=== PATIENT | female | born 1975 | race Caucasian/White ===

== ENCOUNTER 2025-02-11 18:38 | Observation (INO) | payer BC ==
[~2025-02-11] VITALS: Ht 152.4 cm; Wt 50.2 kg
[2025-02-11] MEDS ORDERED: SILD20TA42 PO (20:38)
[2025-02-11] MEDS ORDERED: GUAI120L62 PO (20:38)
[2025-02-11 20:40] VITALS: O2SAT 99
[2025-02-11] MEDS ORDERED: CYCL5TAB3 PO (20:40)
[2025-02-11 20:51] VITALS: BP 141/99; PULSE 89; RESP 20; TEMP 98
[2025-02-11] MEDS ORDERED: BENZ200C53 PO (21:14)
[2025-02-11] MEDS ORDERED: HYDR-4060 PO (21:14)
--- NOTE | 2025-02-11 21:15 | HP ---
History of Present Illness Reason for Visit: Chest pain History of Present Illness Ms. Adler is a 50-year-old female that was seen and examined today on 02/11/2025. Patient is a good historian of personal health. Patient's has been, mary dutta is at bedside. Patient is visiting [place] from where she lives in [facility]. Today at 1:00 p.m. after eating at: Around patient developed chest pain. Location is midsternal. Duration is on and off. Character is described as pressure. Episode lasted2 hours. Pain radiated to upper back. Symptoms are not alleviated with three sublingual nitroglycerin at [facility]. Symptoms are aggravated with physical activity. Patient reports that she was walking to her car after leaving the restaurant she felt dizzy but did not lose consciousness or feet. Patient believes her "open esophagus" maybe also contributing to these symptoms. Emergency room physician at [facility] recommended that patient be admitted to the hospitalist so they could be evaluated by Cardiology Service. Patient was accepted by Dr. Jackson newberry. And arrived later on Past Medical History ADDITIONAL PAST MEDICAL HISTORY: [Lupus, pulmonary fibrosis, open " open esophagus"] SOCIAL HISTORY: [Negative for smoking, alcohol use, drug use. Patient lives with the has beenmary. Patient is typically independent of all her ADLs. Patient denies difficulty paying her bills. SURGICAL HISTORY: [ section x3 Review of Systems General: No Fever, No Chills, No Night Sweats, No Fatigue, No Malaise, No Appetite, No Other HEENT: No Head Aches, No Visual Changes, No Eye Pain, No Ear Pain, No Dysp hasia, No Sinus Congestion, No Post Nasal Drip, No Sore Throat, No Other Pulmonary: No Dyspnea, No Cough, No Pleuritic Chest Pain, No Other Cardiovascular: Chest Pain; No: Palpitations, Orthopnea, Paroxysmal Noc. Dyspnea, Edema, Lt Headedness, Other Gastrointestinal: No: Nausea, Vomiting, Abdominal Pain, Diarrhea, Constipation, Melena, Hematochezia, Other Genitourinary: No Dysuria, No Frequency, No Incontinence, No Hematuria, No Retention, No Other Musculoskeletal: No: other, neck pain, shoulder pain, arm pain, back pain, hand pain, leg pain, foot pain Skin: No Urticaria, No Rash, No Other Neurological: No: Weakness, Numbness, Incoordination, Change in speech, Confusion, Seizures, Other Allergies: Coded Allergies: No Known Drug Allergies (Unverified Allergy, Unknown, 02/11/25) Scheduled Cholecalciferol (Vitamin D3) (Vitamin D3), 125 MCG PO DAILY, (Reported) Naloxone HCl (Naloxone HCl), 4 MG NS AD, (Reported) Sildenafil Citrate (Sildenafil), 20 MG PO DAILY, (Reported) Scheduled PRN Benzonatate (Benzonatate), 100 MG PO TID PRN for COUGH, (Reported) Cyclobenzaprine HCl (Cyclobenzaprine HCl), 5 MG PO TIDP PRN for MUSCLE SPASMS, (Reported) Guaifenesin/Codeine Phosphate (Codeine-Guaifen 10-100 mg/5 ml), 5 ML PO QIDP PRN for PAIN LEVEL 1 TO 5, (Reported) Hydrocodone/Acetaminophen (Hydrocodon-Acetaminophen 5-325), 1 EACH PO Q4HPRN PRN for PAIN LEVEL 6 TO 10, (Reported) Ipratropium/Albuterol Sulfate (Iprat-Albut 0.5-3(2.5) mg/3 ml), 3 ML IH Q4HPRN PRN for SHORTNESS OF BREATH/WHEEZING, (Reported) Exam Vital Signs Vital Signs Date Time Temp Pulse Resp B/P (MAP) Pulse Ox O2 Delivery O2 Flow Rate FiO2 02/11/25 20:51 98.1 89 20 141/99 100 Room Air General Appearance: Alert, Oriented X3, Cooperative, No acute distress HEENT: Atraumatic, EOMI Respiratory: Clear to auscultation, Normal air movement, NL respiratory effort Cardiovascular: Regular rate, Regular rhythm, Normal S1, Normal S2 Abdominal: Normal bowel sounds, Soft, No tenderness Extremities: No edema Skin: No significant lesion Neuro: Normal gait, Normal speech, Strength at 5/5 X4 ext, Sensation intact, Cranial nerves 3-12 NL Psych/Mental Status: Mental status NL, Mood NL, Thoughts/Content NL Assessment/Plan ASSESSMENT: [ Chest pain, POA Lupus, POA Pulmonary fibrosis, POA] PLAN: [ Admit patient to pccu as inpatient status. Place patient on telemetry monitoring. patient received loading dose of [facility] at [facility]. Continue aspirin 81 mg by mouth once daily Nitroglycerin sublingual 0.4 mg as needed for chest pain every 5 minutes, max 3 doses, hold for systolic blood pressure less than 100 mmHg. Trend troponin every 6 hours x 3 sets Supplemental oxygen to maintain O2 saturation greater than 92% patient will be followed by cardiology service, appreciate recommendations. Consider resuming home medications once they have been reconciled. At time of admission home medications has been reconciled. GI prophylaxis, famotidine DVT prophylaxis, Lovenox ADVANCED CARE PLANNING 1. Which of the following were discussed? Hospice Care - Yes Therapeutic options - yes Advance Directives - Yes - patient states he does not have any advance directives in place at this time, however her , freedom can make decisions for her if she becomes unable Other discussions - patient wishes to remain a full code at this time 2. Discussed with who? Patient 3. Voluntary nature of this service was explained to the patient? Yes 4. Amount of time spent - ___16 minutes____ 5. Reviewed by Physician? (if this service was performed by NPP) Yes This document was generated in part using voice recognition software, occasional wrong word or sound alike substitutions may have occurred due to the inherent limitations of voice recognition software. Read the chart carefully and recognize using context, where the substitutions have occurred. Although every effort was made to edit the content, vice president mission integration and typing errors may occur ATTESTATION BY PHYSICIAN I have seen and examined the patient. I reviewed the documentation, medical decision making, and treatment plan as noted by the mid-level provider above. I agree with the findings and plan of care.] AD SANDHU [facility] Feb 11, 2025 21:15
[2025-02-11] MEDS ORDERED: IPRA3AMP24 NEB (21:17)
[2025-02-11] MEDS ORDERED: IPRA3AMP24 IH (21:17)
[2025-02-11] MEDS ORDERED: NALO4SPR22 NS (21:17)
[2025-02-11] MEDS ORDERED: CALC-866 PO (21:20)
[2025-02-11] MEDS ORDERED: MYCO500T5 PO (21:22)
[2025-02-11] MEDS ORDERED: NITROGLYCERIN 0.4 MG SL TAB SL PRN (22:00)
[2025-02-11 23:25] VITALS: BP 115/71; PULSE 96; RESP 18; TEMP 98
[2025-02-12 03:25] VITALS: BP 87/57; PULSE 91; RESP 18; TEMP 98.4
[2025-02-12] MEDS ORDERED: MYCO500T5 PO (03:44)
[2025-02-12 04:30] LABS: IMMATURE GRANULOCYTE ABSOLUTE 0.04 K/uL (0-1); NUCLEATED RED BLOOD CELLS 0.0 % (0.0-0.19); PLATELET COUNT (AUTO) 341 K/uL (130-400); RED BLOOD CELL COUNT(AUTO) 4.01 MIL/uL (4.00-5.50); RED CELL DISTRIBUTION WIDTH 13.2 % (11.0-15.5); WHITE BLOOD COUNT (AUTO) 6.9 K/uL (4.8-10.8)
[2025-02-12 04:48] LABS: CREATININE 0.6 mg/dL (0.5-1.0); GLOMERULAR FILTR. RATE CALC 110.0 mL/min (>90); GLUCOSE,RANDOM 95.0 mg/dL (70-105); PHOSPHORUS 4.4 mg/dL (2.5-4.9); SODIUM SERUM 137.0 mmol/L (136-145); UREA NITROGEN, BLOOD 13.0 mg/dL (7-18)
[2025-02-12 07:00] VITALS: BP 96/63; PULSE 67; RESP 20; TEMP 98
--- NOTE | 2025-02-12 09:18 | CONS ---
[facility] CARDIOLOGY CONSULTATION REPORT Consultation note dictated for Luisa Rodney MD Date Patient Seen: Feb 12, 2025 Time of Visit: 09:12 Requesting Physician: DB Chadwick Reason for Consultation: Chest pain History of Present Illness: This is a 50-year-old female with a past medical history of Lupus erythematosus, Raynaud's disease, scleroderma, pulmonary fibrosis, and esophageal problems who presented to the ED with complaints of chest pain. Cardiology has been consulted for chest pain. On Saturday, in the patient developed lower sternal/epigastric discomfort that lasted approximately 1-1/2 hours after consuming an alcoholic beverage. Yesterday, the patient again developed lower sternal/epigastric discomfort discomfort that radiated to her back described as pressure-like and burning while eating at a buffet. Discomfort with severe and accompanied by nausea, vomiting, dizziness, diaphoresis, and elevated heart rate. The patient visited [facility] emergency center for evaluation of symptoms. She was given sublingual and nitroglycerin paste without resolution of symptoms. Symptoms subsided after IV Pepcid. An abdominal ultrasound on 02/11 demonstrated cholelithiasis without cholecystitis. Cardiac enzymes have been negative x2. EKG from [facility] 02/11 at 1316 demonstrated normal sinus rhythm with a heart rate of 88bpm with no acute ischemia. No overnight telemetry events, currently demonstrating normal sinus rhythm with heart rates 70s to 80s. The patient is currently chest pain-free. She did report having diarrhea. The patient states she is having Lupus flare and complains of left flank discomfort. No chest discomfort with palpation. Past Medical History: As per HPI and summarized below Past Surgical History: x3 Family History: The patient is adopted and does not know her family history. Social History: The patient lives with family. Habits: The patient denies tobacco or illicit drug use but does admit alcohol consumption twice a month. Home Meds: Mycophenolate 500 mg b.i.d. Benzonatate 100 mg t.i.d. p.r.n. Vitamin D3125 mcg daily Cyclobenzaprine 5mg t.i.d. p.r.n. Guaifenesin/codeine phosphate 10 mg-100 mg/ 5mL, 5 mL q.i.d. p.r.n. Hydrocodone/acetaminophen 5-325 mg q.4 hours p.r.n. Ipratropium/albuterol sulfate 0.5 mg-3 mg,/3ml, 3 mL inhaled q.4 hours p.r.n. Naloxone 5 mg as directed Sildenafil 20 mg daily Current Meds: Medications Dose Ordered Sig/Samreen Start Time Stop Time Status Last Admin Guaifenesin/ Codeine Phosphate 5 ml Q4H PRN 02/11/25 21:00 03/13/25 20:59 Acetaminophen 650 mg Q6H PRN 02/11/25 22:00 03/13/25 21:59 Atorvastatin Calcium 40 mg HS 02/12/25 21:00 03/14/25 20:59 Famotidine 20 mg DAILY 02/12/25 09:00 03/14/25 08:59 Enoxaparin Sodium 40 mg DAILY 02/12/25 09:00 03/14/25 08:59 Hydralazine HCl 10 mg Q6H PRN 02/11/25 22:00 03/13/25 21:59 Morphine Sulfate 2 mg Q4H PRN 02/11/25 22:00 02/18/25 21:59 Ondansetron HCl 4 mg Q6H PRN 02/11/25 22:00 03/13/25 21:59 Aspirin 81 mg DAILY 02/12/25 09:00 03/14/25 08:59 Nitroglycerin 0.4 mg PROTOCOL PRN 02/11/25 22:00 03/13/25 21:59 Review of Systems: CONST: No fever, fatigue, or weight changes. EYES: No recent vision problems. ENT: No congestion, ear pain, or sore throat. C/V: No chest pain, palpitations, or edema. RESP: No cough, congestion, wheezing or shortness of breath. GI: No abdominal pain, nausea, vomiting, constipation, or diarrhea. : No incontinence or dysuria. SKIN: No rash. NEURO: No headache, focal numbness or weakness, dizziness, or seizures. PSYCH: No depression or anxiety. HEME: No abnormal bruising or bleeding. LYMPH: No swollen glands. Physical Examination: GENERAL: No acute distress. HEAD: Normal with no signs of head trauma. EYES: conjunctiva and sclera normal. ENT: Hearing grossly intact, normal oropharynx. NECK: Supple without JVD. Normal carotid upstrokes without bruits. LUNGS: Clear breath sounds bilaterally. No wheezes, or rhonchi. HEART: Normal rate and rhythm. Normal S1 and S2 without murmurs, gallop or rub. VASC: Peripheral pulses +2 bilaterally. ABD: Bowel sounds normal, soft, nontender, no masses, no organomegaly. No audible bruits. : Not examined LYMPH: No lymphadenopathy noted. EXT: No clubbing, cyanosis or edema. SKIN: No rashes or lesions noted. NEURO: Awake, alert, and oriented x3. No focal sensory or strength deficits noted. Vital Signs (last 8hr) Date Time Temp Pulse Resp B/P (MAP) Pulse Ox O2 Delivery O2 Flow Rate FiO2 02/12/25 07:00 98.1 67 20 96/63 96 Room Air 02/12/25 03:25 98.4 91 18 87/57 94 Room Air Laboratory: Hematology Labs: Test 02/12/25 04:06 Range/Units White Blood Count 6.9 4.8-10.8 K/uL Red Blood Count 4.01 4.00-5.50 MIL/uL Hemoglobin 11.9 L 12.0-16.0 g/dL Hematocrit 36.2 36-48 % Mean Corpuscular Volume 90.3 79-99 fL Mean Corpuscular Hemoglobin 29.7 27.0-33.0 pg Mean Corpuscular Hemoglobin Concent 32.9 32.0-36.0 g/dL Red Cell Distribution Width 13.2 11.0-15.5 % Platelet Count 341 130-400 K/uL Mean Platelet Volume 8.9 7.5-10.5 fL Immature Granulocyte % (Auto) 0.6 0-1 % Neutrophils (%) (Auto) 50.7 40.0-77.0 % Lymphocytes (%) (Auto) 30.3 21.0-51.0 % Monocytes (%) (Auto) 9.3 3.0-13.0 % Eosinophils (%) (Auto) 8.4 H 0.0-8.0 % Basophils (%) (Auto) 0.7 0.0-5.0 % Neutrophils # (Auto) 3.5 1.8-7.7 K/uL Lymphocytes # (Auto) 2.1 1.0-4.8 K/uL Monocytes # (Auto) 0.6 0.1-1.0 K/uL Eosinophils # (Auto) 0.58 0.00-0.70 K/uL Basophils # (Auto) 0.05 0.00-0.20 K/uL Absolute Immature Granulocyte (auto 0.04 0-1 K/uL Nucleated Red Blood Cells 0.0 0.0-0.19 % Chemistry Labs: Test 02/12/25 04:06 Range/Units Sodium Level 137 136-145 mmol/L Potassium Level 3.9 3.5-5.1 mmol/L Chloride Level 104 101-111 mmol/L Carbon Dioxide Level 24 21-32 mmol/L Blood Urea Nitrogen 13 7-18 mg/dL Creatinine 0.6 0.5-1.0 mg/dL Glomerular Filtration Rate Calc 110 >90 mL/min Random Glucose 95 70-105 mg/dL Total Calcium 8.8 8.5-10.1 mg/dL Phosphorus Level 4.4 2.5-4.9 mg/dL Magnesium Level 1.80 1.80-2.40 mg/dL Troponin I High Sensitivity 21 4-50 ng/L Diagnostics / Radiology: Impression and Plan: Atypical chest discomfort Lupus erythematosus Raynaud's disease Scleroderma Pulmonary fibrosis Esophageal problems Pending JOSE evaluation by her quality internship Pending an outpatient EGD/Colonoscopy on 03/12/2025 Atypical chest discomfort Cardiac enzymes have been negative x2. EKG from [facility] 02/11 at 1316 demonstrated normal sinus rhythm with a heart rate of 88bpm with no acute ischemia. No overnight telemetry events, currently demonstrating normal sinus rhythm with heart rates 70s to 80s. The patient is pending an outpatient EGD/Colonoscopy on 03/12/2025 in [place], [place] where she resides. -Symptoms sound GI related at they occurred after alcohol consumption, then while eating and was relieved by IV Pepcid. -Will obtain a 2D Echo, if benign, cardiology will sign-off. We do recommend an outpatient Stress test vs Coronary CTA. BONNY CRAMER PHOTOGRAPHY TEACHER Feb 12, 2025 09:18
--- NOTE | 2025-02-12 09:49 | NUR ---
DCP: HOME Pt and visiting [facility] for 's job. Couple will be saying at [facility] for a few days. Pt under care for Lupus, states she applied for SSD and pending determination. Pt sates she is independent of her self care and home management. Family assists as needed. Pt uses no DME or in home care services. PCP is Dr Keating, Lupus Dr Kp Vincent in [place]. DCP is to Ve[facility] in [facility] with
[2025-02-12 09:50] VITALS: O2SAT 99
[2025-02-12] MEDS: FAMOTIDINE 20MG VIAL IV SCH (09:51)
[2025-02-12] MEDS: ASPIRIN 81 MG EC TAB PO SCH (09:51)
[2025-02-12] MEDS: ENOXAPARIN SODIUM 40 MG/0.4 ML SYRINGE SQ SCH (09:52)
[2025-02-12 11:00] VITALS: BP 104/73; PULSE 88; RESP 20; TEMP 97.9
[2025-02-12] MEDS ORDERED: BENZONATATE 100 MG CAPSULE PO PRN (11:00)
[2025-02-12] MEDS ORDERED: CYCLOBENZAPRINE HCL 10 MG TABLET PO PRN (11:00)
--- NOTE | 2025-02-12 14:10 | PN ---
[facility] PROGRESS NOTE Date of Service: Feb 12, 2025 Time of Service: 14:10 SUBJECTIVE: [ ] REVIEW OF SYSTEMS CONSTITUTIONAL: Denies fevers, chills, or night sweats. No unintentional weight loss reported. NEUROLOGICAL: Denies headache, amaurosis fugax, motor weakness, sensory deficit, vertigo/spinning sensation, gait abnormalities, or tremors. ENT: No hearing loss, otalgia, otorrhea, rhinitis, rhinorrhea, hoarseness, or sore throat. CARDIOVASCULAR: Denies any exertional angina, dyspnea on exertion, orthopnea, paroxysmal nocturnal dyspnea, palpitations, life-threatening arrhythmias, claudication. PULMONARY: Denies any shortness of breath, cough, phlegm/sputum, hemoptysis, pleuritic chest pain. SLEEP: Denies morning headaches, daytime somnolence or napping. Denies difficulty falling asleep, staying asleep, waking from sleep. Denies knowledge of snoring. GASTROINTESTINAL: Denies any type of dysphagia to either liquids or solids. Denies nausea, vomiting, pyrosis, early satiety, abdominal pain, diarrhea, constipation, or changes in stool consistency or caliber. Denies coffee-ground emesis, hematemesis, hematochezia, or melanotic stools. GENITOURINARY: Denies frequency, urgency, nocturia, hematuria or incontinence (Storage/Irritative symptoms.) Low urinary stream, straining to void, urinary i ntermittency or hesitancy, splitting of the voiding stream, terminal dribbling. ENDOCRINOLOGIC: Denies polyuria, polydipsia, polyphagia or heat/cold intolerances. HEMATOLOGIC: Denies thrombophilia/previous clots, or coagulopathy/bleeding disorders. ONCOLOGIC: Denies personal history of malignancy. DERMATOLOGIC: Denies rashes or pruritus. PSYCHIATRIC: Denies any suicidal or homicidal ideation. Denies hallucinations. PHYSICAL EXAM GENERAL APPEARANCE: The patient is awake, alert, and oriented, in no acute cardiopulmonary distress. NEUROLOGICAL: Cranial nerves II-XII grossly intact. Motor is 5/5 in bilateral upper and lower extremities proximal to distal. No sensory deficits. HEENT: Face is symmetric. Pupils are equal and reactive. Extraocular movements are intact. NECK: Supple. No JVD. No thyromegaly. No submental, submandibular, pre- /postauricular, occipital or supraclavicular lymphadenopathy. CHEST: Normal chest expansion. No Telemetry. LUNGS: Absence of any rales, rhonchi or any wheezing. CARDIOVASCULAR: Regular. S1 and S2 normal. No appreciable rubs, murmurs or gallops. ABDOMEN: Soft, nontender, and nondistended. There is no rebound, voluntary guarding, or rigidity. : Deferred. No Perry. EXTREMITIES: Non-edematous and not cyanotic. No clubbing. Good capillary refill. SKIN: No skin breakdown. Vital Signs (last 8hr) Date Time Temp Pulse Resp B/P (MAP) Pulse Ox O2 Delivery O2 Flow Rate FiO2 02/12/25 11:00 97.9 88 20 104/73 95 Room Air 02/12/25 09:50 99 Room Air* 0 21 02/12/25 07:00 98.1 67 20 96/63 96 Room Air LABS: Laboratory: Test 02/12/25 10:00 02/12/25 04:06 Range/Units Troponin I High Sensitivity 14 4-50 ng/L White Blood Count 6.9 4.8-10.8 K/uL Red Blood Count 4.01 4.00-5.50 MIL/uL Hemoglobin 11.9 L 12.0-16.0 g/dL Hematocrit 36.2 36-48 % Mean Corpuscular Volume 90.3 79-99 fL Mean Corpuscular Hemoglobin 29.7 27.0-33.0 pg Mean Corpuscular Hemoglobin Concent 32.9 32.0-36.0 g/dL Red Cell Distribution Width 13.2 11.0-15.5 % Platelet Count 341 130-400 K/uL Mean Platelet Volume 8.9 7.5-10.5 fL Immature Granulocyte % (Auto) 0.6 0-1 % Neutrophils (%) (Auto) 50.7 40.0-77.0 % Lymphocytes (%) (Auto) 30.3 21.0-51.0 % Monocytes (%) (Auto) 9.3 3.0-13.0 % Eosinophils (%) (Auto) 8.4 H 0.0-8.0 % Basophils (%) (Auto) 0.7 0.0-5.0 % Neutrophils # (Auto) 3.5 1.8-7.7 K/uL Lymphocytes # (Auto) 2.1 1.0-4.8 K/uL Monocytes # (Auto) 0.6 0.1-1.0 K/uL Eosinophils # (Auto) 0.58 0.00-0.70 K/uL Basophils # (Auto) 0.05 0.00-0.20 K/uL Absolute Immature Granulocyte (auto 0.04 0-1 K/uL Nucleated Red Blood Cells 0.0 0.0-0.19 % Sodium Level 137 136-145 mmol/L Potassium Level 3.9 3.5-5.1 mmol/L Chloride Level 104 101-111 mmol/L Carbon Dioxide Level 24 21-32 mmol/L Blood Urea Nitrogen 13 7-18 mg/dL Creatinine 0.6 0.5-1.0 mg/dL Glomerular Filtration Rate Calc 110 >90 mL/min Random Glucose 95 70-105 mg/dL Total Calcium 8.8 8.5-10.1 mg/dL Phosphorus Level 4.4 2.5-4.9 mg/dL Magnesium Level 1.80 1.80-2.40 mg/dL Current Medications Medications (Trade) Dose Ordered Sig/Samreen Route PRN Reason Start Time Stop Time Status Last Admin Dose Admin Acetaminophen (TYLenol 325MG TAB) 650 mg Q6H PRN PO TEMPERATURE GREATER THAN 101.5 02/11/25 22:00 03/13/25 21:59 Aspirin (Aspirin 81mg Ec Tab) 81 mg DAILY PO 02/12/25 09:00 03/14/25 08:59 02/12/25 09:51 81 MG Atorvastatin Calcium (LIPItor 40MG) 40 mg HS PO 02/12/25 21:00 03/14/25 20:59 Benzonatate (Tessalon 100mg Caps) 100 mg TID PRN PO COUGH 02/12/25 11:00 03/14/25 10:59 Cyclobenzaprine HCl (Cyclobenzaprine HCl) 5 mg TIDP PRN PO MUSCLE SPASMS 02/12/25 11:00 03/14/25 10:59 Enoxaparin Sodium (Lovenox) 40 mg DAILY SQ 02/12/25 09:00 03/14/25 08:59 02/12/25 09:52 40 MG Famotidine (Pepcid 20mg Vial) 20 mg DAILY IV 02/12/25 09:00 03/14/25 08:59 02/12/25 09:51 20 MG Guaifenesin/ Codeine Phosphate (RobiTUSSin AC 5 ML SYRUP) 5 ml Q4H PRN PO PAIN1-5 02/11/25 21:00 03/13/25 20:59 Home Med (Home Medication) (Cholecalciferol (Vitamin D3) 125 MCG) DAILY PO 02/13/25 09:00 03/15/25 08:59 Hydralazine HCl (APRESOLine 20MG INJ) 10 mg Q6H PRN IV For:SBP above 160;DBP above 90 02/11/25 22:00 03/13/25 21:59 Morphine Sulfate (morPHINE 4MG SYG) 2 mg Q4H PRN IVP SEVERE PAIN (7-10) 02/11/25 22:00 02/18/25 21:59 Mycophenolate Mofetil (Cellcept) 500 mg BID PO 02/12/25 21:00 03/14/25 20:59 Nitroglycerin (Nitrostat) 0.4 mg PROTOCOL PRN SL CHEST PAIN 02/11/25 22:00 03/13/25 21:59 Ondansetron HCl (zoFRAN 4MG INJ) 4 mg Q6H PRN IV NAUSEA/VOMITING 02/11/25 22:00 03/13/25 21:59 DIAGNOSTICS / RADIOLOGY: [ ] ASSESSMENT: [ ] PLAN: [ ] FIONA PATEL MD Feb 12, 2025 14:10
--- NOTE | 2025-02-12 15:14 | HMCSR ---
APPROVED REPORT EXAM: Two-dimensional and M-mode echocardiogram with Doppler and color Doppler. INDICATION ICD: Chest Pain 2D Dimensions RVDd 3.0 cm LVEF(%) 67.6 (>50%) LVED Vol(simp.) 50.0 mL IVSd 0.8 (0.7-1.1cm) FS(%) 37 % LVES Vol(simp.) 22.0 mL LVDd 3.3 (3.8-5.6cm) LA (2D) 3.1 (1.6-4.0cm) LVEF(%, simp.) 57 % PWd 0.9 (0.7-1.1cm) Ao Root(2D) 2.5 (2.0-3.7cm) LA ESV INDEX (BP) 19.49 mL/m2 IVSs 1.1 cm LVOT diam 1.9 (1.8-2.4cm) LVDs 2.1 (2.5-4.0cm) IVC diam 1.4 cm PWs 1.3 cm Deformation Strain Apical 4 -18.6 % Apical 2 -18.0 % Apical 3 -17.8 % Global Strain -18.1 % M-Mode Dimensions EPSS 0.4 cm LA (MM) 3.0 (1.6-4.0cm) Ao Root(MM) 2.5 (2.0-3.7cm) Aortic Valve AoV Vmax 0.9 m/s Ao Peak GR 3.3 mmHg LVOT Vmax 0.8 m/s AoV VTI 0.2 m Ao Mean GR 2.0 mmHg LVOT VTI 0.14 m MARKIE (VMAX) 2.42 cm2 MARKIE (VTI) 2.7 cm2 Mitral Valve MV E Vmax 89.1 cm/s DECEL Time 138 ms MV A Vmax 38.4 cm/s P 1/2 T 32 ms E/A ratio 2.3 MVA (PHT) 6.8 cm2 TDI E/E' Medial 7.9 E/E' Lateral 7.3 Medial E' Peak V 11.32 cm/s Lateral E' Peak V 12.23 cm/s Pulmonary Valve PV Vmax 0.8 m/s PV Mean GR 1.6 mmHg PV Peak GR 2.4 mmHg Tricuspid Valve TR Vmax 2.0 m/s RAP (EST) 3 mmHg RVSP 19.0 mmHg TR Peak GR 16.0 mmHg Left Ventricle The left ventricle is normal size. GLS 18.0% No regional wall motion abnormalities noted. There is normal left ventricular wall thickness. LVEF is 60-65%. The left ventricular diastolic function is normal. Right Ventricle The right ventricle is normal size. The right ventricular systolic function is normal. Atria The left atrium size is normal. The right atrium size is normal. Aortic Valve The aortic valve is normal in structure. No aortic regurgitation is present. There is no aortic valvular stenosis. Mitral Valve The mitral valve is normal in structure. There is trace of mitral valve regurgitation noted. There is no mitral valve stenosis. Tricuspid Valve The tricuspid valve is normal in structure. There is trace of tricuspid valve regurgitation noted. Estimated pulmonary pressures are normal. Pulmonic Valve The pulmonary valve is normal in structure. There is no pulmonic valvular regurgitation. Great Vessels The aortic root is normal in size. The IVC is normal in size and collapses >50% with inspiration. Pericardium There is no pericardial effusion. Other Information Quality : Adequate Rhythm : NSR Conclusion LVEF is 60-65%. The left ventricular diastolic function is normal. No significant valvular abnormalities
[2025-02-12 16:00] VITALS: BP 100/71; PULSE 84; RESP 20; TEMP 98.5
[2025-02-12] MEDS ORDERED: NIFE-40 PO (16:25)
[2025-02-12] MEDS ORDERED: PANT40TA55 PO (16:25)
--- NOTE | 2025-02-12 16:46 | DS ---
Discharge Summary Hospital Course Summary: The patient is 50-year-old female with history of systemic lupus erythematosus, Raynaud's disease, scleroderma, pulmonary fibrosis, and chronic esophageal motility problems who presented with midsternal chest pain while visiting [place] from [place]. Her symptoms began after eating, described as p ressure-like pain radiating to upper back and worsened by activity. She had similar episode on Saturday associated with nausea, vomiting, dizziness, diaphoresis and tachycardia. Patient was admitted for further evaluation as pain was not relieved by nitroglycerin. Serial cardiac enzymes were negative, and ECG showed normal sinus rhythm with no ischemic changes. During admission, the patient remained chest pain-free. Telemetry was unremarkable, and a 2D echocardiogram showed normal cardiac function. Card iology evaluated the patient it remained the chest pain was noncardiac, likely gastrointestinal or related to an autoimmune flare. She reported diarrhea and left flank discomfort but no recurrent chest pain. As she remained hemodynamically stable, Cardiology cleared her for discharge. She was instructed to follow up with the her primary care provider and kitchen bath designer and to return for any worsening chest pain, persistent abdominal symptoms or new concerning signs. Cotton Expert(s): CONSULTATION REPORT Name: NIRAJ CORTEZ Acct: [id number] MR: [id number] : 1975 Admit Date: 02/11/25 BONNY CRAMER [address] [address] [facility] CONSULTATION REPORT Consultation note dictated for Luisa Rodney MD Date Patient Seen: Feb 12, 2025 Time of Visit: 09:12 Requesting Physician: DB Chadwick Reason for Consultation: Chest pain History of Present Illness: This is a 50-year-old female with a past medical history of Lupus erythematosus, Raynaud's disease, scleroderma, pulmonary fibrosis, and esophageal problems who presented to the ED with complaints of chest pain. Cardiology has been consulted for chest pain. On Saturday, in the patient developed lower sternal/epigastric discomfort that lasted approximately 1-1/2 hours after consuming an alcoholic beverage. Yesterday, the patient again developed lower sternal/epigastric discomfort discomfort that radiated to her back described as pressure-like and burning while eating at a buffet. Discomfort with severe and accompanied by nausea, vomiting, dizziness, diaphoresis, and elevated heart rate. The patient visited [facility] [place] for evaluation of symptoms. She was given sublingual and nitroglycerin paste without resolution of symptoms. Symptoms subsided after IV Pepcid. An abdominal ultrasound on 02/11 demonstrated cholelithiasis without cholecystitis. Cardiac enzymes have been negative x2. EKG from [facility] 02/11 at 1316 demonstrated normal sinus rhythm with a heart rate of 88bpm with no acute ischemia. No overnight telemetry events, currently demonstrating normal sinus rhythm with heart rates 70s to 80s. The patient is currently chest pain-free. She did report having diarrhea. The patient states she is having Lupus flare and complains of left flank discomfort. No chest discomfort with palpation. Past Medical History: As per HPI and summarized below Past Surgical History: x3 Family History: The patient is adopted and does not know her family history. Social History: The patient lives with family. Habits: The patient denies tobacco or illicit drug use but does admit alcohol consumption twice a month. Home Meds: Mycophenolate 500 mg b.i.d. Benzonatate 100 mg t.i.d. p.r.n. Vitamin D3125 mcg daily Cyclobenzaprine 5mg t.i.d. p.r.n. Guaifenesin/codeine phosphate 10 mg-100 mg/ 5mL, 5 mL q.i.d. p.r.n. Hydrocodone/acetaminophen 5-325 mg q.4 hours p.r.n. Ipratropium/albuterol sulfate 0.5 mg-3 mg,/3ml, 3 mL inhaled q.4 hours p.r.n. Naloxone 5 mg as directed Sildenafil 20 mg daily Current Meds: Medications Dose Ordered Sig/Samreen Start Time Stop Time Status Last Admin Guaifenesin/ Codeine Phosphate 5 ml Q4H PRN 02/11/25 21:00 03/13/25 20:59 Acetaminophen 650 mg Q6H PRN 02/11/25 22:00 03/13/25 21:59 Atorvastatin Calcium 40 mg HS 02/12/25 21:00 03/14/25 20:59 Famotidine 20 mg DAILY 02/12/25 09:00 03/14/25 08:59 Enoxaparin Sodium 40 mg DAILY 02/12/25 09:00 03/14/25 08:59 Hydralazine HCl 10 mg Q6H PRN 02/11/25 22:00 03/13/25 21:59 Morphine Sulfate 2 mg Q4H PRN 02/11/25 22:00 02/18/25 21:59 Ondansetron HCl 4 mg Q6H PRN 02/11/25 22:00 03/13/25 21:59 Aspirin 81 mg DAILY 02/12/25 09:00 03/14/25 08:59 Nitroglycerin 0.4 mg PROTOCOL PRN 02/11/25 22:00 03/13/25 21:59 Review of Systems: CONST: No fever, fatigue, or weight changes. EYES: No recent vision problems. ENT: No congestion, ear pain, or sore throat. C/V: No chest pain, palpitations, or edema. RESP: No cough, congestion, wheezing or shortness of breath. GI: No abdominal pain, nausea, vomiting, constipation, or diarrhea. : No incontinence or dysuria. SKIN: No rash. NEURO: No headache, focal numbness or weakness, dizziness, or seizures. PSYCH: No depression or anxiety. HEME: No abnormal bruising or bleeding. LYMPH: No swollen glands. Physical Examination: GENERAL: No acute distress. HEAD: Normal with no signs of head trauma. EYES: conjunctiva and sclera normal. ENT: Hearing grossly intact, normal oropharynx. NECK: Supple without JVD. Normal carotid upstrokes without bruits. LUNGS: Clear breath sounds bilaterally. No wheezes, or rhonchi. HEART: Normal rate and rhythm. Normal S1 and S2 without murmurs, gallop or rub. VASC: Peripheral pulses +2 bilaterally. ABD: Bowel sounds normal, soft, nontender, no masses, no organomegaly. No audible bruits. : Not examined LYMPH: No lymphadenopathy noted. EXT: No clubbing, cyanosis or edema. SKIN: No rashes or lesions noted. NEURO: Awake, alert, and oriented x3. No focal sensory or strength deficits noted. Vital Signs (last 8hr) Date Time Temp Pulse Resp B/P (MAP) Pulse Ox O2 Delivery O2 Flow Rate FiO2 02/12/25 07:00 98.1 67 20 96/63 96 Room Air 02/12/25 03:25 98.4 91 18 87/57 94 Room Air Laboratory: Hematology Labs: Test 02/12/25 04:06 Range/Units White Blood Count 6.9 4.8-10.8 K/uL Red Blood Count 4.01 4.00-5.50 MIL/uL Hemoglobin 11.9 L 12.0-16.0 g/dL Hematocrit 36.2 36-48 % Mean Corpuscular Volume 90.3 79-99 fL Mean Corpuscular Hemoglobin 29.7 27.0-33.0 pg Mean Corpuscular Hemoglobin Concent 32.9 32.0-36.0 g/dL Red Cell Distribution Width 13.2 11.0-15.5 % Platelet Count 341 130-400 K/uL Mean Platelet Volume 8.9 7.5-10.5 fL Immature Granulocyte % (Auto) 0.6 0-1 % Neutrophils (%) (Auto) 50.7 40.0-77.0 % Lymphocytes (%) (Auto) 30.3 21.0-51.0 % Monocytes (%) (Auto) 9.3 3.0-13.0 % Eosinophils (%) (Auto) 8.4 H 0.0-8.0 % Basophils (%) (Auto) 0.7 0.0-5.0 % Neutrophils # (Auto) 3.5 1.8-7.7 K/uL Lymphocytes # (Auto) 2.1 1.0-4.8 K/uL Monocytes # (Auto) 0.6 0.1-1.0 K/uL Eosinophils # (Auto) 0.58 0.00-0.70 K/uL Basophils # (Auto) 0.05 0.00-0.20 K/uL Absolute Immature Granulocyte (auto 0.04 0-1 K/uL Nucleated Red Blood Cells 0.0 0.0-0.19 % Chemistry Labs: Test 02/12/25 04:06 Range/Units Sodium Level 137 136-145 mmol/L Potassium Level 3.9 3.5-5.1 mmol/L Chloride Level 104 101-111 mmol/L Carbon Dioxide Level 24 21-32 mmol/L Blood Urea Nitrogen 13 7-18 mg/dL Creatinine 0.6 0.5-1.0 mg/dL Glomerular Filtration Rate Calc 110 >90 mL/min Random Glucose 95 70-105 mg/dL Total Calcium 8.8 8.5-10.1 mg/dL Phosphorus Level 4.4 2.5-4.9 mg/dL Magnesium Level 1.80 1.80-2.40 mg/dL Troponin I High Sensitivity 21 4-50 ng/L Diagnostics / Radiology: Impression and Plan: Atypical chest discomfort Lupus erythematosus Raynaud's disease Scleroderma Pulmonary fibrosis Esophageal problems Pending JOSE evaluation by her vice president client services Pending an outpatient EGD/Colonoscopy on 03/12/2025 Atypical chest discomfort Cardiac enzymes have been negative x2. EKG from [facility] 02/11 at 1316 demonstrated normal sinus rhythm with a heart rate of 88bpm with no acute ischemia. No overnight telemetry events, currently demonstrating normal sinus rhythm with heart rates 70s to 80s. The patient is pending an outpatient EGD/Colonoscopy on 03/12/2025 in [place], [place] where she resides. -Symptoms sound GI related at they occurred after alcohol consumption, then while eating and was relieved by IV Pepcid. -Will obtain a 2D Echo, if benign, cardiology will sign-off. We do recommend an outpatient Stress test vs Coronary CTA. BONNY CRAMER Feb 12, 2025 09:18 Electronically Signed by: BONNY CRAMER [facility]04/14/24 1109 Electronically Co-Signed by: Procedure(s): [place] [id number] [address] IMAGING REPORT Signed PATIENT: NIRAJ CORTEZ MR#: [id number] : 1975 SEX: F AGE: 50 LOCATION: [facility] ORDER 1108 STATUS: ADM IN REPORT#: [id number] SERVICE 1107 REASON: chest pain ORDERING PHYSICIAN: BONNY CRAMER PROCEDURE: ECHO CMP - ECHO 2-D COMPLETE APPROVED REPORT EXAM: Two-dimensional and M-mode echocardiogram with Doppler and color Doppler. INDICATION ICD: Chest Pain 2D Dimensions RVDd 3.0 cm LVEF(%) 67.6 (>50%) LVED Vol(simp.) 50.0 mL IVSd 0.8 (0.7-1.1cm) FS(%) 37 % LVES Vol(simp.) 22.0 mL LVDd 3.3 (3.8-5.6cm) LA (2D) 3.1 (1.6-4.0cm) LVEF(%, simp.) 57 % PWd 0.9 (0.7-1.1cm) Ao Root(2D) 2.5 (2.0-3.7cm) LA ESV INDEX (BP) 19.49 mL/m2 IVSs 1.1 cm LVOT diam 1.9 (1.8-2.4cm) LVDs 2.1 (2.5-4.0cm) IVC diam 1.4 cm PWs 1.3 cm Deformation Strain Apical 4 -18.6 % Apical 2 -18.0 % Apical 3 -17.8 % Global Strain -18.1 % M-Mode Dimensions EPSS 0.4 cm LA (MM) 3.0 (1.6-4.0cm) Ao Root(MM) 2.5 (2.0-3.7cm) Aortic Valve AoV Vmax 0.9 m/s Ao Peak GR 3.3 mmHg LVOT Vmax 0.8 m/s AoV VTI 0.2 m Ao Mean GR 2.0 mmHg LVOT VTI 0.14 m MARKIE (VMAX) 2.42 cm2 MARKIE (VTI) 2.7 cm2 Mitral Valve MV E Vmax 89.1 cm/s DECEL Time 138 ms MV A Vmax 38.4 cm/s P 1/2 T 32 ms E/A ratio 2.3 MVA (PHT) 6.8 cm2 TDI E/E' Medial 7.9 E/E' Lateral 7.3 Medial E' Peak V 11.32 cm/s Lateral E' Peak V 12.23 cm/s Pulmonary Valve PV Vmax 0.8 m/s PV Mean GR 1.6 mmHg PV Peak GR 2.4 mmHg Tricuspid Valve TR Vmax 2.0 m/s RAP (EST) 3 mmHg RVSP 19.0 mmHg TR Peak GR 16.0 mmHg Left Ventricle The left ventricle is normal size. GLS 18.0% No regional wall motion abnormalities noted. There is normal left ventricular wall thickness. LVEF is 60-65%. The left ventricular diastolic function is normal. Right Ventricle The right ventricle is normal size. The right ventricular systolic function is normal. Atria The left atrium size is normal. The right atrium size is normal. Aortic Valve The aortic valve is normal in structure. No aortic regurgitation is present. There is no aortic valvular stenosis. Mitral Valve The mitral valve is normal in structure. There is trace of mitral valve regurgitation noted. There is no mitral valve stenosis. Tricuspid Valve The tricuspid valve is normal in structure. There is trace of tricuspid valve regurgitation noted. Estimated pulmonary pressures are normal. Pulmonic Valve The pulmonary valve is normal in structure. There is no pulmonic valvular regurgitation. Great Vessels The aortic root is normal in size. The IVC is normal in size and collapses >50% with inspiration. Pericardium There is no pericardial effusion. Other Information Quality : Adequate Rhythm : NSR Conclusion LVEF is 60-65%. The left ventricular diastolic function is normal. No significant valvular abnormalities DICTATED BY: LUISA RODNEY DO DATE: 02/12/25 1125 ELECTRONICALLY SIGNED BY: LUISA RODNEY DO DATE: 02/12/25 3479 Assessment/Plan: ASSESSMENT: Chest pain, POA SLE, POA Scleroderma, POA Pulmonary hypertension, POA Discharge Instructions: Continue all prescribed medications, including pulmonary hypertension therapies, immunosuppressants and pain medications exactly clear as directed. Monitor for recurrence of chest pain, shortness of breath, leg swelling, dizziness, or palpitations; rest and avoid heavy exertion until cleared by your specialist. Follow a low-salt diet, maintain adequate hydration, and avoid triggers such as cold exposure and stress that may worsen scleroderma symptoms. Keep all follow up appointments with Rheumatology, and primary care for close mo nitoring of your sle, scleroderma. Call your doctor if symptoms worsen or if you have concerns about medication side effects. Return to ER if any: Severe or worsening chest pain, new shortness of breath, fainting, rapid heart rate, or coughing up blood Worsening leg swelling, fever, confusion, or inability to catch her breath Take nifedipine 30 mg ER 1 tablet daily for 30 days Take pantoprazole 40 mg 1 tablet daily for 30 days Continue all other home medication prescribed before. Follow up with your PCP in 1-2 weeks. Follow up with your kitchen bath designer in 1-2 weeks. Follow up with hose inspector and patcher in 1-2 weeks. Home Medications: Active Scripts Pantoprazole Sodium (Protonix) 40 Mg Ectab, 1 TAB PO ACBKFST for 30 Days, #30 TAB 0 Refills Prov:JR CUNNINGHAM MD 02/12/25 Nifedipine (Nifedipine ER) 30 Mg Tab.er.24, 1 TAB PO DAILY for 30 Days, #30 TAB 0 Refills Prov:JR CUNNINGHAM MD 02/12/25 Reported Medications Mycophenolate Mofetil (Mycophenolate Mofetil) 500 Mg Tablet, 500 MG PO BID, TAB 02/12/25 Cholecalciferol (Vitamin D3) (Vitamin D3) 125 Mcg (5000 Unit) Tablet, 125 MCG PO DAILY, TAB 02/11/25 Naloxone HCl (Naloxone HCl) 4 Mg/Actuation Sultana, 4 MG NS AD, SPRAY 02/11/25 Ipratropium/Albuterol Sulfate (Iprat-Albut 0.5-3(2.5) mg/3 ml) 0.5 Mg-3 Mg (2.5 Mg Base)/3 Ml Ampul.neb, 3 ML IH Q4HPRN PRN for SHORTNESS OF BREATH/WHEEZING 02/11/25 Hydrocodone/Acetaminophen (Hydrocodon-Acetaminophen 5-325) 5 Mg-325 Mg Tablet, 1 EACH PO Q4HPRN PRN for PAIN LEVEL 6 TO 10, TAB 02/11/25 Benzonatate (Benzonatate) 200 Mg Capsule, 100 MG PO TID PRN for COUGH, CAP 02/11/25 Cyclobenzaprine HCl (Cyclobenzaprine HCl) 5 Mg Tablet, 5 MG PO TIDP PRN for MUSCLE SPASMS, TAB 02/11/25 Sildenafil Citrate (Sildenafil) 20 Mg Tablet, 20 MG PO DAILY, TAB 02/11/25 Guaifenesin/Codeine Phosphate (Codeine-Guaifen 10-100 mg/5 ml) 10 Mg-100 Mg/5 Ml Liquid, 5 ML PO QIDP PRN for PAIN LEVEL 1 TO 5 02/11/25 New Medications: Nifedipine (Nifedipine ER) 30 Mg Tab.er.24 1 TAB PO DAILY for 30 Days, #30 TAB 0 Refills Pantoprazole Sodium (Protonix) 40 Mg Ectab 1 TAB PO ACBKFST for 30 Days, #30 TAB 0 Refills Continued Medications: Benzonatate (Benzonatate) 200 Mg Capsule 100 MG PO TID PRN for COUGH, CAP Cholecalciferol (Vitamin D3) (Vitamin D3) 125 Mcg (5000 Unit) Tablet 125 MCG PO DAILY, TAB Cyclobenzaprine HCl (Cyclobenzaprine HCl) 5 Mg Tablet 5 MG PO TIDP PRN for MUSCLE SPASMS, TAB Guaifenesin/Codeine Phosphate (Codeine-Guaifen 10-100 mg/5 ml) 10 Mg-100 Mg/5 Ml Liquid 5 ML PO QIDP PRN for PAIN LEVEL 1 TO 5 Hydrocodone/Acetaminophen (Hydrocodon-Acetaminophen 5-325) 5 Mg-325 Mg Tablet 1 EACH PO Q4HPRN PRN for PAIN LEVEL 6 TO 10, TAB Ipratropium/Albuterol Sulfate (Iprat-Albut 0.5-3(2.5) mg/3 ml) 0.5 Mg-3 Mg (2.5 Mg Base)/3 Ml Ampul.neb 3 ML IH Q4HPRN PRN for SHORTNESS OF BREATH/WHEEZING Mycophenolate Mofetil (Mycophenolate Mofetil) 500 Mg Tablet 500 MG PO BID, TAB Naloxone HCl (Naloxone HCl) 4 Mg/Actuation Sultana 4 MG NS AD, SPRAY Sildenafil Citrate (Sildenafil) 20 Mg Tablet 20 MG PO DAILY, TAB Time spent arranging discharge: 1-30 minutes ATTESTATION BY PHYSICIAN I have seen and examined the patient. I reviewed the documentation, medical decision making, and treatment plan as noted by the resident above. I agree with the findings and plan of care. Beni Abreu IV, MD, ADIL SHAH QUADRI MD Feb 12, 2025 16:46
--- NOTE | 2025-02-12 17:45 | NUR ---
DISCHARGE Discharge instructions given to patient and patient's spouse. Both verbalized knowledge and understanding. All patient's personal belongings verified to be back with patient. Patient ambulated out due to not wanting to wait for wheelchair. Patient accompanied by Inez JAUREGUI to patient's private home transportation. Patient discharged now.
[2025-02-12] MEDS ORDERED: MYCOPHENOLATE MOFETIL 250 MG CAPSULE PO SCH (21:00)
== END 2025-02-12 17:45 | disposition home or self-care (01) ==
LOC: 2DH 19:37 → INTOOBSV 19:37
PROVIDERS: ADMIT Internal Medicine; ATTEND Internal Medicine
DX: R07.89 Other chest pain (principal); I73.00 Raynaud's syndrome without gangrene; J84.10 Pulmonary fibrosis, unspecified; M32.9 Systemic lupus erythematosus, unspecified; R42 Dizziness and giddiness; R00.0 Tachycardia, unspecified; Z79.899 Other long term (current) drug therapy; Z98.890 Other specified postprocedural states
CPT/HCPCS: 84484 ×3; 93306; 96374; 96372; 83735; 84100; 80048; 85025; 36415; 93356; G0378; J1308; J1650